=== PATIENT | male | born 1980 | race Hispanic/Latino ===

== ENCOUNTER 2017-01-28 22:13 | Emergency (ER) | payer OTHER ==
[~2017-01-28 22:13] MED LIST: AMOX875T2 PO
[2017-01-28 22:29] VITALS: BP 150/93; PULSE 120; RESP 24; O2SAT 95
--- NOTE | 2017-01-28 22:34 | ED.REPORT ---
HPI-Psychiatric Illness Date of Service Jan 28, 2017 ED Provider: Hermes Alcala MD The patient is a 37 year old male with a history of methamphetamine use who presents to the ED via Police after his mother called with concern for threatening behavior just prior to arrival. Per police, the patient's mother reports that over the past week the patient has been hallucinating, using drugs , breaking objects, hiding knives, and making threatening statements including "I wonder what it would be like to kill you." When the patient grabbed a knife today, his mother ran out of the house and called police. The patient reports "passing out" for several hours today but is otherwise unsure as to why he is in the ED. He presents agitated, making nonsensical statements and actively hallucinating. Nursing Notes Stated Complaint: SUICIDAL IDEATION Chief Complaint: Psychiatric Complaint Nursing Notes Reviewed: Yes Allergies: Coded Allergies: No Known Allergies (Verified Allergy, Unknown, 09/18/15) Scheduled Amoxicillin (Amoxicillin) 875 Mg Tablet 875 MG PO BID General Time Seen by MD: 22:32 Chief Complaint Other (Threatening Behavior) Hx Obtained From: Police Unable to Obtain Hx: Patient condition, Mental status Arrived By: Police Onset Occurred: 1 week ago Symptom Duration: Since onset Pertinent Negative: Relieved by nothing Related History: Reports: Illicit drug use Immunizations: Tetanus up to date Recent Healthcare: No recent doctor visit Risk-Psychiatric Illness Suicide Risk Stratification RF Statements: Risk factors reviewed Past Medical History Past Medical History Denies Past Surgical History Denies Social History Drug Use: Meth Ambulatory Status Independent Review of Systems Unable to Obtain ROS Patient condition, Mental status Physical Exam Initial Vital Signs Vital Signs (First) Date Time Temp Pulse Resp B/P Pulse Ox O2 Delivery O2 Flow Rate FiO2 01/28/17 22:29 36.6 120 24 150/93 95 Room Air Initial VS: Reviewed, Vital signs abnormal Neck: Supple, Full range of motion Respiratory: Breath sounds normal, Clear to auscultation, No respiratory distress Skin: Warm, Dry, No cyanosis General/Constitutional: Awake, Alert Behavior: Positive: Agitated Abnormal Thinking / Perception: Positive: Delusions - paranoid PSYCHIATRIC: Agitated, mumbling, pacing, constant movement Head / Eyes: Atraumatic, Normocephalic ENT: Airway patent Facial flushing Cardiovascular: Regular rhythm, Heart sounds NL Heart Rate / Rhythm: Positive: Tachycardia Interpretation & Diagnostics URINE DRUG SCREEN: + Methamphetamine + Phencyclidine + Amphetamines Otherwise Negative BREATHALYZER: 0 Lab Results Interpretation Result Diagram: 01/29/17 0020 01/29/17 0020 Test 01/28/17 22:38 01/29/17 00:20 01/29/17 06:51 Hold Urine Received (Received) White Blood Count 14.8th/mm3 (3.8-10.1) Red Blood Count 5.32mil/mm3 (4.40-5.80) Hemoglobin 17.4g/dL (13.8-17.2) Hematocrit 48.5% (41.0-50.0) Mean Corpuscular Volume 91.2fL (81-100) Mean Corpuscular Hemoglobin 32.7pg (27.0-35.0) Mean Corpuscular Hemoglobin Concent 35.9% (32.0-37.0) Red Cell Distribution Width 12.5% (12.3-15.4) Platelet Count 326bil/L (150-400) Neutrophils (%) (Auto) 75.2% (40-74) Lymphocytes (%) (Auto) 14.2% (14-46) Monocytes (%) (Auto) 8.7% (4-12) Eosinophils (%) (Auto) 0.6% (0-5) Basophils (%) (Auto) 0.4% (0-3) Thyroid Stimulating Hormone (TSH) 1.750uIU/mL (0.450-4.500) Hold Chu Top Tube Received (Received) Lab Results Interpretation: Elevated white blood count, hemoconcentration, elevated BUNs, elevated CPK, elevated liver enzymes and bilirubin. Re-Eval/Medical Decision Med Decision/Clinical Course 37-year-old male who uses methamphetamine. He became increasingly more delusional and argumentative with his mom. He verbally wondered what would be like to kill her and got a knife from the kitchen. She exited the house and called 911 and he was brought here. He is actively hallucinating and minimally cooperative. He never became physical but there was certainly posturing. He was pacing and chanting. He was initially given Ativan and Benadryl and Haldol orally. He took the medication but he did not sedate him. He was then given Zyprexa Zydis 10 mg by mouth, again without effect. Then he was given Zyprexa 10 and Versed 5 IM with some sedation. We were able to draw labs which showed that he had dehydration and rhabdomyolysis and transaminitis. He was given 2 L of saline. His care is being turned over change of shift to Dr. Christofer Trujillo. Re-Evaluation/Progress #1: Time of Eval: 22:40 Patient Status: Condition unchanged Re-Evaluation/Progress Note: A face to face with the patient was performed. Patient is agitated, actively hallucinating, delusional, fearful of unknown harm. Patient has a history at home of threatening behavior towards his mother and himself with a knife. He will be placed in seclusion. Re-Evaluation/Progress #2: Time of Eval: 03:10 Patient Status: Condition improved Re-Evaluation/Progress Note: A face to face with the patient was performed. He requires IV fluids for his medical condition. Patient was placed in four-point restraints to facilitate this. Re-Evaluation/Progress #3: Time of Eval: 06:00 Patient Status: Condition improved Re-Evaluation/Progress Note: Patient is sleeping. Care will be transferred to Dr. Trujillo at change of shift. Discharge & Departure Shift Change Sign-Out Patient Care Transferred: Yes (Dr. Trujillo) Discussed Complaint(s): Yes Laboratory Evaluation: Lab evaluation discussed Response to Therapy: Improved Impression: Primary Impression: Methamphetamine abuse Additional Impressions: Rhabdomyolysis Rhabdomyolysis type: non-traumatic Qualified Code: M62.82 - Rhabdomyolysis Dehydration Referrals: NOPCP (PCP) Care Transferred to: Dr. Trujillo Care Transferred at: 06:00 Anabellibe Attestation Portions of this note were transcribed by Ivette Oakes. I, Dr. Alcala, personally performed the history, physical exam, and medical decision-making; I reviewed and confirmed the accuracy of the information in the transcribed note. Signed by: Fredrick Hawley, 01/29/2017, 06:35 Hermes Alcala MD Jan 28, 2017 22:34 IVETTE OAKES Jan 28, 2017 22:41 actively hallucinating, delusional, fearful of unknown harm. Patient has a history at home of threatening behavior towards his mother and himself with a knife. He will be placed in seclusion. Re-Evaluation/Progress #2: Time of Eval: 03:10 Patient Status: Condition improved Re-Evaluation/Progress Note: A face to face with the patient was performed. He requires IV fluids for his medical condition. Patient was placed in four-point restraints to facilitate this. Re-Evaluation/Progress #3: Time of Eval: 06:00 Patient Status: Condition improved Re-Evaluation/Progress Note: Patient is sleeping. Care will be transferred to Dr. Trujillo at change of shift. Discharge & Departure Shift Change Sign-Out Patient Care Transferred: Yes (Dr. Trujillo) Discussed Complaint(s): Yes Laboratory Evaluation: Lab evaluation discussed Response to Therapy: Improved Impression: Primary Impression: Methamphetamine abuse Additional Impressions: Rhabdomyolysis Rhabdomyolysis type: non-traumatic Qualified Code: M62.82 - Rhabdomyolysis Dehydration Referrals: NOPCP (PCP) Care Transferred to: Dr. Trujillo Care Transferred at: 06:00 Scribe Attestation Portions of this note were transcribed by Ivette Oakes. I, Dr. Alcala, personally performed the history, physical exam, and medical decision-making; I reviewed and confirmed the accuracy of the information in the transcribed note. Signed by: Fredrick Hawley, 01/29/2017, 06:35 Hermes Alcala MD Jan 28, 2017 22:34 IVETTE OAKES Jan 28, 2017 22:41
[2017-01-28] MEDS ORDERED: diphenhydrAMINE 25 mg Capsule PO ONE (22:45)
[2017-01-28] MEDS ORDERED: LORazepam 2 mg Tablet PO ONE (22:45)
[2017-01-28] MEDS: OLANZapine Zydis ODT 5 mg Tablet PO SCH (23:59)
[2017-01-29 00:37] LABS: BASOPHILS % (AUTO) 0.4 % (0-3); EOSINOPHILS % (AUTO) 0.6 % (0-5); MONOCYTES % (AUTO) 8.7 % (4-12); Mean Corpuscular Hemoglobin 32.7 pg (27.0-35.0); Mean Corpuscular Volume 91.2 fL (81-100); NEUTROPHILS % (AUTO) 75.2 % (40-74); Platelet Count 326 bil/L (150-400)
[2017-01-29] MEDS ORDERED: Midazolam 5 mg/mL 10 mL Inj IM ONE (01:00)
[2017-01-29] MEDS ORDERED: 0.9% Sodium Chloride 1,000 ML IV ONE ×4 (02:23→09:50)
[2017-01-29 03:34] VITALS: BP 149/91; PULSE 116; RESP 18; O2SAT 96
[2017-01-29 06:39] VITALS: BP 140/82; PULSE 108; RESP 16; O2SAT 96
[2017-01-29] MEDS: OLANZapine Zydis ODT 5 mg Tablet PO SCH (10:03)
[2017-01-29 12:56] VITALS: BP 110/69; PULSE 112; RESP 14; O2SAT 94
[2017-01-30 02:08] LABS: Hepatitis A Antibody IgM Negative (Negative); Hepatitis B Core Antibody IgM Negative (Negative)
== END 2017-01-29 12:57 | disposition home or self-care (01) ==
LOC: SED 22:13
DX: F15.159 Other stimulant abuse with stimulant-induced psychotic disorder, unspecified (principal); M62.82 Rhabdomyolysis; E86.0 Dehydration; R79.89 Other specified abnormal findings of blood chemistry
CPT/HCPCS: 36415; 80053; 81002; 82075; 82550; 84443; 85025; 86705; 86709; 87340; 87341; 96360; 96361; 96372; 99285; G0472; J2250; J7030; S0166

== ENCOUNTER 2017-02-12 23:12 | Emergency (ER) | payer OTHER ==
[~2017-02-12] VITALS: Ht 172.7 cm; Wt 102.3 kg
[2017-02-12 23:22] VITALS: BP 144/84; PULSE 70; RESP 24; O2SAT 98
--- NOTE | 2017-02-13 00:19 | ED.REPORT ---
HPI-Psychiatric Illness Date of Service Feb 13, 2017 ED Provider: Dr. Alcala Pt is a 37 y/o male w/ a hx of meth abuse presenting to the ED with his family for a mental health evaluation. The patient was brought in to the ED by his sisters for mental health evaluation because he has been having hallucinations, HI, and SI. When asked about plan for suicide he states he would have someone else kill him such as a " by copier technician" although he does not have a specific plan or intent for either his HI or SI. He has also been having thoughts about punching his sister while she is driving. He also reports drinking drain fluid this morning without it being a suicide attempt. The patient admits to using methamphetamine this morning. Nursing Notes Stated Complaint: MENTAL HEALTH EVALUATION Chief Complaint: Psychiatric Complaint Nursing Notes Reviewed: Yes Allergies: Coded Allergies: No Known Allergies (Verified Allergy, Unknown, 02/12/17) Scheduled Amoxicillin (Amoxicillin) 875 Mg Tablet 875 MG PO BID General Time Seen by MD: 00:19 Chief Complaint Suicidal ideation Hx Obtained From: Patient Arrived By: Walk-in Onset Occurred: Onset unknown Symptom Duration: Since onset Progression Since Onset: Constant Severity: Current: No pain currently Severity: Maximum: No pain Risk-Psychiatric Illness Suicide Risk Stratification RF Statements: Risk factors reviewed Past Medical History Past Medical History Meth abuse Past Surgical History Denies Smoking History Unknown if Ever Smoker Social History Alcohol Use: "Social" Drug Use: Meth Ambulatory Status Independent Review of Systems Constitutional: Denies: Chills, Fever Respiratory: Denies: Non-productive cough, Shortness of breath Cardiovascular: Denies: Chest pain, Dyspnea on exertion GI: Denies: Abdominal pain, Nausea, Vomiting Psychiatric: Reports: Agitation, Change mental status, Hallucinations, auditory , Hallucinations, visual, Homicidal ideation, Hostile, Suicidal ideation, Unable to control self, Denies: Confusion Complete sys rev & neg: except as marked. Physical Exam Initial Vital Signs Vital Signs (First) Date Time Temp Pulse Resp B/P Pulse Ox O2 Delivery O2 Flow Rate FiO2 02/12/17 23:22 36.8 70 24 144/84 98 Room Air Initial VS: Reviewed, Vital signs normal Head / Eyes: Atraumatic, Normocephalic, PERRL ENT: Mucous membranes moist, Conjunctiva normal, No scleral icterus Neck: Supple, Full range of motion Respiratory: Breath sounds normal, Clear to auscultation, No respiratory distress Abdomen / GI: Soft, No distention Extremities: Vascular intact, Neuro intact Skin: Warm, Dry, No cyanosis General/Constitutional: Awake, Alert, No acute distress, Well hydrated, Cooperative, Not toxic appearing Smells of alcohol Neurologic: Oriented X3, No motor deficits, Memory NL Speech is mildly slurred Psychiatric: No hallucinations Calm and cooperative at the moment Not hyperactive No pressured speech Endorses SI and HI but does not currently have a plan or intent for either of these Cardiovascular: Regular rhythm, Heart sounds NL, No gallop, No murmurs, No rubs Heart Rate / Rhythm: Positive: Tachycardia (110 bpm) Interpretation & Diagnostics Lab Results Interpretation Test 02/13/17 02:00 Hold Urine Received (Received) Re-Eval/Medical Decision Med Decision/Clinical Course This patient was initially seen and evaluated by me. His symptoms are likely due to methamphetamine. We will allow him to sleep and sober and his care is being turned over at change of shift to Dr. Christofer Trujillo. Re-Evaluation/Progress : Time of Eval: 05:52 Re-Evaluation/Progress Note: ED stay uneventful. Counseled Regarding: Diagnosis, Lab results Discharge & Departure Impression: Primary Impression: Methamphetamine abuse Additional Impressions: Suicidal ideation Homicidal ideation Discharge Condition All VS Reviewed: Yes Condition: Stable Referrals: NOPCP (PCP) Care Transferred to: Dr. Trujillo Care Transferred at: 06:00 Scribe Attestation Portions of this note were transcribed by Harrison Cid. I, Dr. Alcala personally performed the history, physical exam and medical decision-making; I reviewed and confirmed the accuracy of the information in the transcribed note. Signed by Fredrick Cabrera, 02/13/17 - 0045 Hermes Alcala MD Feb 13, 2017 00:19 HARRISON CID Feb 13, 2017 00:34
[2017-02-13] MEDS ORDERED: OLANZapine Zydis ODT 5 mg Tablet ONE (04:48)
[2017-02-13 07:08] VITALS: BP 168/99; PULSE 124; O2SAT 95
[2017-02-13 07:49] LABS: BASOPHILS % (AUTO) 0.4 % (0-3); EOSINOPHILS % (AUTO) 0.3 % (0-5); MONOCYTES % (AUTO) 12.3 % (4-12); Mean Corpuscular Hemoglobin 33.3 pg (27.0-35.0); Mean Corpuscular Volume 95.5 fL (81-100); NEUTROPHILS % (AUTO) 69.5 % (40-74); Platelet Count 282 bil/L (150-400)
[2017-02-13] MEDS ORDERED: OLANZapine Zydis ODT 5 mg Tablet PO SCH (08:30)
== END 2017-02-13 17:00 | disposition home or self-care (01) ==
LOC: SED 23:12
DX: F15.10 Other stimulant abuse, uncomplicated (principal); R45.851 Suicidal ideations; R45.850 Homicidal ideations